=== PATIENT | female | born 1965 | race Caucasian/White ===

== ENCOUNTER → 2016-07-31 | Outpatient (CLI) | payer MEDICAID ==
--- NOTE | 2016-07-31 16:40 | XR ---
EXAM TYPE: LUMBAR SPINE X RAY SERIES COMPARISON: NONE HISTORY: Pain TECHNIQUE: 3views are submitted. FINDINGS: Alignment is anatomic. The pedicles are intact. The transverse processes are intact. There is no s pondylolysis or spondylolisthesis. Diffuse osteopenia noted. Degenerative disc disease L4-5 and L5-S 1 with facet arthropathy. IMPRESSION: 1. Multilevel degenerative disc disease. Consider follow-up MRI.
--- NOTE | 2016-07-31 16:41 | XR ---
EXAMINATION TYPE: XR tibia fibula LT DATE OF EXAM: 07/31/2016 4:32 PM COMPARISON: NONE HISTORY: Pain TECHNIQUE: Two views are submitted. FINDINGS: The osseous structures are intact. The joint spaces are preserved. IMPRESSION: 1. No acute osseous abnormality.
--- NOTE | 2016-07-31 16:42 | XR ---
EXAMINATION TYPE: XR thoracic spine 2V DATE OF EXAM: 07/31/2016 4:31 PM COMPARISON: NONE HISTORY: Pain Alignment is anatomic. There is no compression deformities. Hypertrophic change and mild narrowing o f the disc spaces. No compression deformities. IMPRESSION: 1. Multilevel hypertrophic and degenerative disc disease.
== END ==
LOC: RADXRMAIN 16:04
PROVIDERS: ATTEND Family Medicine
DX: M51.36 Other intervertebral disc degeneration, lumbar region (principal); M79.662 Pain in left lower leg
CPT/HCPCS: 72070; 72100

== ENCOUNTER → 2016-08-30 | Outpatient (CLI) | payer MEDICAID ==
--- NOTE | 2016-08-30 08:15 | MR ---
EXAMINATION TYPE: MR lumbar spine wo/w con DATE OF EXAM: 08/30/2016 7:02 AM COMPARISON: 07/23/2015 HISTORY: Low back pain CONTRAST: 15 mL intravenous MultiHance. TECHNIQUE: Multiplanar, multisequence images of the lumbar spine were acquired. FINDINGS: L5-S1: Minimal disc bulge is evident on the sagittal plane images. This has anterior thecal sac conta ct without stenosis. Facet hypertrophy is present with mild posterior lateral thecal sac contact. Mil d right and [id number] left foraminal narrowing is present. Disc desiccation is present. L4-L5: No significant disc bulge or disc herniation. No spinal canal stenosis. No foraminal stenosi s. Mild facet hypertrophy and ligamentum flavum laxity has posterior lateral thecal sac flattening. Disc desiccation is present. L3-L4: No significant disc bulge or disc herniation. A subtle annular tear may be present on T2-weigh marcus images. No spinal canal stenosis. No foraminal stenosis. L2-L3: No significant disc bulge or disc herniation. No spinal canal stenosis. No foraminal stenosi s. L1-L2: No significant disc bulge or disc herniation. No spinal canal stenosis. No foraminal stenosi s. T12-L1: No significant disc bulge or disc herniation. No spinal canal stenosis. No foraminal stenos is. Previous L5-S1 left paracentral and left lateral disc herniation is largely resolved. No abnormal enh ancement is evident. Some granulation tissue enhancement in left lateral and epidural thecal sac spac e is present on post contrast imaging IMPRESSION: 1. Resolution previous left L5-S1 disc herniation. 2. Mild degenerative disc desiccation L4-5 L5-S1. 3. Mild residual disc bulging L5-S1 without obvious nerve root impingement or significant thecal sac compression.
== END ==
LOC: RADMRIMAIN 06:17
PROVIDERS: ATTEND Orthopaedic Surgery Orthopaedic Surgery of the Spine
DX: M51.17 Intervertebral disc disorders with radiculopathy, lumbosacral region (principal)
CPT/HCPCS: 72158; A9577

== ENCOUNTER → 2016-09-01 | Outpatient (CLI) | payer MEDICAID ==
--- NOTE | 2016-09-05 10:55 | MM ---
Reason for exam: screening (asymptomatic). Last mammogram was performed 1 year ago. History: Family history of breast cancer in 2 maternal cousins and breast cancer in paternal grandmother. Physical Findings: A clinical breast exam by your physician is recommended on an annual basis and results should be correlated with mammographic findings. MG 3D Screening Mammo W/Cad Bilateral CC and MLO view(s) were taken. Prior study comparison: August 30, 2015, bilateral MG 3d screening mammo w/cad. August 17, 2014, bilateral MG screening mammo w CAD. August 13, 2013, mammogram, performed at [facility]. There are scattered fibroglandular densities. Finding: There are typically benign round, grouped and scattered calcifications in both breasts. There is no discrete abnormality. ASSESSMENT: Benign, BI-RAD 2 RECOMMENDATION: Routine screening mammogram of both breasts in 1 year.
== END | disposition home or self-care (01) ==
LOC: RADMAMWWP 08:02
PROVIDERS: ATTEND Obstetrics & Gynecology
DX: Z12.31 Encounter for screening mammogram for malignant neoplasm of breast (principal); Z80.3 Family history of malignant neoplasm of breast
CPT/HCPCS: 77063; G0202

== ENCOUNTER → 2016-09-06 | Outpatient (CLI) | payer MEDICAID ==
--- NOTE | 2016-09-06 12:40 | MR ---
EXAMINATION TYPE: MR thoracic spine wo con DATE OF EXAM: 09/06/2016 10:30 AM COMPARISON: NONE HISTORY: pain, diformity of chest rib, rt side pain Standard multiplanar, multisequence MRI departmental protocol Multiplanar, multisequence images of the thoracic spine were acquired. Diffusion weighted imaging was performed. FINDINGS: Alignment is anatomic. There are no compression deformities. Disc space appears fairly well preserved. Disc desiccation at T8-T9 noted. No focal disc herniation and in the visualized levels. There is a cystic lesion along the right lateral margin of the vertebral body measuring 1 cm at the a pproximate level of T5. Could relate to mesenteric or neurenteric cyst. CT chest recommended No canal stenosis or foraminal encroachment at any of the visualized levels. IMPRESSION: No disc herniation, canal stenosis or foraminal encroachment at any of the visualized levels. 1 cm predominantly cystic lesion adjacent the right lateral margin of T5 could relate a neurenteric c yst but is nonspecific. CT of the chest with contrast recommended for complete characterization.
== END | disposition home or self-care (01) ==
LOC: RADMRIMAIN 09:52
PROVIDERS: ATTEND Family Medicine
DX: M89.9 Disorder of bone, unspecified (principal); R07.81 Pleurodynia; M95.4 Acquired deformity of chest and rib
CPT/HCPCS: 72146

== ENCOUNTER → 2016-09-21 | Outpatient (CLI) | payer MEDICAID ==
--- NOTE | 2016-09-21 09:01 | CT ---
EXAMINATION TYPE: CT chest w con DATE OF EXAM: 09/21/2016 8:55 AM COMPARISON: NONE HISTORY: Cyst at T5 level CT DLP: 551 mGycm Automated exposure control for dose reduction was used. CONTRAST: CT scan of the chest is performed with IV Contrast, patient injected with 100 mL of Omnipaque 300. FINDINGS: LUNGS: The lungs are grossly clear, there is no concerning parenchymal mass or nodule identified. T here is no pleural effusion or pneumothorax seen. The tracheobronchial tree is patent. MEDIASTINUM: There are no greater than 1 cm hilar or mediastinal lymph nodes. No pericardial effusi on is seen. Thoracic aorta is of normal caliber. The heart is not enlarged. UPPER ABDOMEN: No significant abnormality appreciated. 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 No evidence for solid component or bony turner tructive process. No additional lesions identified. IMPRESSION: 1. 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
== END | disposition home or self-care (01) ==
LOC: RADCTMAIN 08:23
PROVIDERS: ATTEND Family Medicine
DX: G96.19 Other disorders of meninges, not elsewhere classified (principal)
CPT/HCPCS: 71260; Q9967

== ENCOUNTER → 2016-09-29 | Outpatient (CLI) | payer MEDICAID ==
--- NOTE | 2016-09-29 09:33 | US ---
EXAMINATION TYPE: US transvaginal DATE OF EXAM: 09/29/2016 8:45 AM COMPARISON: US CLINICAL HISTORY: R10.2 Pelvic Pain N93.8 Dysfunctional Uterine Bleed. History of ovarian cysts, irre gular cycles, 4, para 4 TECHNIQUE: Transvaginal (TV) only per ordering physician Date of LMP: 08/31/2016 EXAM MEASUREMENTS: Uterus: 8.3 x 5.3 x 7.0 cm Endometrial Stripe: 1.5 cm Right Ovary: not seen Left Ovary: 4.1 x 2.8 x 3.5 cm 1. Uterus: retroverted, slightly heterogeneous echotexture 2. Endometrium: slightly thickened at 1.5cm for secretory phase 3. Right Ovary: not seen due to overlying bowel gas 4. Left Ovary: multiple cystic areas with largest measuring 2.3 x 2.1 x 2.4cm 5. Bilateral Adnexa: wnl 6. Posterior cul-de-sac: small amount of free fluid seen IMPRESSION: 1. Left ovarian cysts, follow-up following the next normal menstrual period or 6 weeks is recommended . 2. Thickened endometrial stripe
== END | disposition home or self-care (01) ==
LOC: RADUSWWP 08:23
PROVIDERS: ATTEND Obstetrics & Gynecology
DX: N83.202 Unspecified ovarian cyst, left side (principal); R10.2 Pelvic and perineal pain
CPT/HCPCS: 76830

== ENCOUNTER → 2017-09-05 | Outpatient (CLI) | payer MEDICAID ==
--- NOTE | 2017-09-07 11:05 | MM ---
Reason for exam: screening (asymptomatic). Last mammogram was performed 1 year ago. History: Family history of breast cancer in 2 maternal cousins and breast cancer in paternal grandmother. Physical Findings: A clinical breast exam by your physician is recommended on an annual basis and results should be correlated with mammographic findings. MG 3D Screening Mammo W/Cad Bilateral CC and MLO view(s) were taken. Prior study comparison: September 01, 2016, bilateral MG 3d screening mammo w/cad. August 30, 2015, bilateral MG 3d screening mammo w/cad. There are scattered fibroglandular densities. No significant changes when compared with prior studies. ASSESSMENT: Benign, BI-RAD 2 RECOMMENDATION: Routine screening mammogram of both breasts in 1 year.
== END | disposition home or self-care (01) ==
LOC: RADMAMWWP 08:04
PROVIDERS: ATTEND Obstetrics & Gynecology
DX: Z12.31 Encounter for screening mammogram for malignant neoplasm of breast (principal); Z80.3 Family history of malignant neoplasm of breast
CPT/HCPCS: 77063; 77067

== ENCOUNTER 2018-09-04 07:32 | Day surgery (SDC) | payer MEDICAID ==
[2018-08-29 13:46] VITALS: BMI 25.7
[~2018-09-04 07:32] MED LIST: LACTATED RINGERS 1,000 ML IV SCH; LIDOCAINE 1% 20 ML VIAL (10MG/ML) FOR IV START INTRADERMA PRN
[2018-09-04 08:05] VITALS: RESP 16; TEMP 98.5
[2018-09-04] MEDS ORDERED: PROPOFOL 10 MG/ML 20 ML VIAL IV ONE (09:06)
--- NOTE | 2018-09-04 09:11 | P.GSHP ---
History of Present Illness H&P Date: 09/04/18 Chief Complaint: Colon cancer screening Patient here today for colonoscopy. Last colonoscopy approximately 10 years ago. No bowel related complaints. No family history of colon cancer. Past Medical History Past Medical History: Thyroid Disorder Additional Past Medical History / Comment(s): migraines, anemia, History of Any Multi-Drug Resistant Organisms: None Reported Past Surgical History: Adenoidectomy, Back Surgery Additional Past Surgical History / Comment(s): oral surgery, colonoscopy, laminectomy Past Anesthesia/Blood Transfusion Reactions: No Reported Reaction Additional Past Anesthesia/Blood Transfusion Reaction / Comment(s): . Smoking Status: Former smoker - Past Family History Mother Family Medical History: No Reported History Medications and Allergies Home Medications Medication Instructions Recorded Confirmed Type Levothyroxine Sodium [Synthroid] 100 mcg PO DAILY 07/23/15 09/04/18 History Topiramate [Topamax] 100 mg PO BID 08/29/18 09/04/18 History Allergies Allergy/AdvReac Type Severity Reaction Status Date / Time codeine Allergy Rash/Hives Verified 08/29/18 13:39 Surgical - Exam Vital Signs Temp Pulse Resp BP Pulse Ox 98.5 F 92 16 108/65 96 09/04/18 08:04 09/04/18 08:04 09/04/18 08:04 09/04/18 08:04 09/04/18 08:04 Physical exam: General: Well-developed, well-nourished HEENT: Normocephalic, sclerae nonicteric Abdomen: Nontender, nondistended Extremities: No edema Neuro: Alert and oriented Assessment and Plan (1) Colon cancer screening Narrative/Plan: Will proceed with colonoscopy Current Visit: Yes Status: Acute Code(s): Z12.11 - ENCOUNTER FOR SCREENING FOR MALIGNANT NEOPLASM OF COLON SNOMED Code(s): 236681776
--- NOTE | 2018-09-04 09:35 | P.PCN ---
Date of Procedure: 09/04/18 Procedure(s) Performed: PREOPERATIVE DIAGNOSIS: Colon cancer screening POSTOPERATIVE DIAGNOSIS: Normal exam PROCEDURE: Colonoscopy ANESTHESIA: MAC SURGEON: Adiel Neves M.D. SPECIMENS: none ENDOSCOPIC PROCEDURE: The patient was placed on the endoscopy table in the left decubitus position. The Olympus colonoscope was inserted into the anus and passed under direct visualization to the base of the cecum. The appendiceal orifice was visualized. From that point the scope was slowly withdrawn inspecti ng all surfaces carefully. There were no neoplastic inflammatory or polypoid lesions throughout the cecum, ascending, transverse, descending, sigmoid and rectum. There was no visible diverticulosis noted. Digital rectal examination reveals small external hemorrhoid. The patient was taken to the recovery room in stable condition per anesthesia guidelines. RECOMMENDATIONS: Increase fiber. Follow-up colonoscopy 10 years.
[2018-09-04 09:52] VITALS: BP 98/64; PULSE 66
== END 2018-09-04 10:07 | disposition home or self-care (01) ==
LOC: ORWHC2ENDO 07:32
PROVIDERS: ATTEND Surgery
DX: Z12.11 Encounter for screening for malignant neoplasm of colon (principal); Z87.891 Personal history of nicotine dependence; E07.9 Disorder of thyroid, unspecified; K64.4 Residual hemorrhoidal skin tags; Z79.890 Hormone replacement therapy; Z79.899 Other long term (current) drug therapy; Z88.5 Allergy status to narcotic agent
CPT/HCPCS: 81025; 84703; J2704; G0121

== ENCOUNTER → 2018-09-06 | Outpatient (CLI) | payer MEDICAID ==
--- NOTE | 2018-09-09 10:45 | MM ---
Reason for exam: screening (asymptomatic). Last mammogram was performed 1 year ago. History: Family history of breast cancer in 2 maternal cousins and breast cancer in paternal grandmother. Physical Findings: A clinical breast exam by your physician is recommended on an annual basis and results should be correlated with mammographic findings. MG 3D Screening Mammo W/Cad Bilateral CC and MLO view(s) were taken. Prior study comparison: September 05, 2017, bilateral MG 3d screening mammo w/cad. September 01, 2016, bilateral MG 3d screening mammo w/cad. There are scattered fibroglandular densities. No suspicious abnormality. No significant changes when compared with prior studies. ASSESSMENT: Incomplete: need additional imaging evaluation, BI-RAD 0 RECOMMENDATION: Ultrasound of the right breast. (palpable) [facility] will attempt to contact patient to return for ultrasound.
== END | disposition home or self-care (01) ==
LOC: RADMAMWWP 09:19
PROVIDERS: ATTEND Obstetrics & Gynecology
DX: Z12.31 Encounter for screening mammogram for malignant neoplasm of breast (principal)
CPT/HCPCS: 77063; 77067

== ENCOUNTER → 2018-10-01 | Outpatient (CLI) | payer MEDICAID ==
--- NOTE | 2018-10-01 12:17 | USB ---
Reason for exam: additional evaluation requested from abnormal screening. History: Family history of breast cancer in 2 maternal cousins and breast cancer in paternal grandmother. Physical Findings: Nurse Summary: bilateral nodularity greater in the right breast (nurse cw). US Breast Workup Limited RT Right limited breast ultrasound including focal area of concern, retroareolar and axilla demonstrates a 0.5 x 1.1 x 0.3cm oval nodes at 3:30-4:00 BB and a 0.5 x 0.9 x 0.3cm ovall node at 3:30-4:00. Possibly subtle intramammary lymph nodes versus prominent lobes. These results were verbally communicated with the patient and result sheet given to the patient on 10/01/18. ASSESSMENT: Probably benign, BI-RAD 3 RECOMMENDATION: Ultrasound of the right breast in 6 months.
== END | disposition home or self-care (01) ==
LOC: RADUSWWP 09:05
PROVIDERS: ATTEND Obstetrics & Gynecology
DX: R92.8 Other abnormal and inconclusive findings on diagnostic imaging of breast (principal)

== ENCOUNTER → 2019-03-24 | Outpatient (CLI) | payer MEDICAID ==
--- NOTE | 2019-03-24 16:57 | US ---
EXAMINATION TYPE: US transvaginal DATE OF EXAM: 03/24/2019 COMPARISON: 09/29/2016 CLINICAL HISTORY: N95.0 post menopausal bleeding. TECHNIQUE: Transvaginal (TV). Date of LMP: Patient went 16 months without a period and has been spotting for 6 days. EXAM MEASUREMENTS: Uterus: 6.6 x 3.8 x 4.5 cm Endometrial Stripe: 0.4 cm Right Ovary: not visualized with certainty Left Ovary: not visualized with certainty 1. Uterus: Retroverted wnl 2. Endometrium: wnl 3. Right Ovary: not visualized with certainty 4. Left Ovary: not visualized with certainty 5. Bilateral Adnexa: wnl 6. Posterior cul-de-sac: wnl Midline there is a cystic structure measuring 2.4 x 1.7 x 1.6cm. IMPRESSION: No normal uterus and endometrium. No Adnexal mass. Cystic fluid collection in the pelvis could be some loculated fluid in the cul-de-sac.
== END ==
LOC: RADUSMAIN 15:51
PROVIDERS: ATTEND Obstetrics & Gynecology
DX: N95.0 Postmenopausal bleeding (principal)
CPT/HCPCS: 76830

== ENCOUNTER → 2019-04-09 | Outpatient (CLI) | payer MEDICAID ==
--- NOTE | 2019-04-09 09:03 | BD ---
EXAMINATION TYPE: Axial Bone Density DATE OF EXAM: 04/09/2019 COMPARISON: NONE CLINICAL HISTORY: post menopausal Height: 5'5 Weight: 163 FRAX RISK QUESTIONS: Secondary Osteoporosis: RISK FACTORS HISTORY OF: Surgery to Spine/): L5 When: 2014 Postmenopausal woman: Y MEDICATIONS: Thyroid Medications: Which medication: Levothyroxine How Lon years Additional Medications: migraine Additional History: EXAM MEASUREMENTS: Bone mineral densitometry was performed using the [employer] System. Bone mineral density about the R hip (g/cm2): 0.956 Bone mineral density about the L hip (g/cm2): 0.900 T Score values are as follows: -----R Neck: -0.6 -----L Neck: -1.0 -----R Total: -0.6 -----L Total: -0.8 Bone mineral density about the L Wrist (g/cm2):0.620 T Score values are as follows: -----Dist. R+U:-2.5 -----Prox. R+U: -0.7 -----Radius total:-0.9 IMPRESSION: Normal (Values between +1 and -1 indicate normal bone mass). Consider repeating this study in 5 years or sooner if there is some new clinical indication. NOTE: T-SCORE=SD OF THE YOUNG ADULT MEAN.
--- NOTE | 2019-04-09 10:47 | USB ---
Reason for exam: follow-up at short interval from prior study. History: Family history of breast cancer in 2 maternal cousins and breast cancer in paternal grandmother. Physical Findings: Nurse Summary: palpable vs normal tissue, patient feels, states "has not changed" (nurse refugio). US Breast Limited RT Technologist: Shanta Funes Right limited breast ultrasound including focal area of concern, retroareolar and axilla demonstrates no cystic or solid lesion seen. These results were verbally communicated with the patient and result sheet given to the patient on 04/09/19. ASSESSMENT: Negative, BI-RAD 1 RECOMMENDATION: Return to routine screening mammogram schedule for both breasts. Back on schedule.
== END | disposition home or self-care (01) ==
LOC: RADUSWWP 08:14
PROVIDERS: ATTEND Obstetrics & Gynecology
DX: R92.8 Other abnormal and inconclusive findings on diagnostic imaging of breast (principal); N95.1 Menopausal and female climacteric states
CPT/HCPCS: 77080

== ENCOUNTER → 2019-05-05 | Outpatient (CLI) | payer MEDICAID ==
--- NOTE | 2019-05-05 12:37 | US ---
EXAMINATION TYPE: US transvaginal DATE OF EXAM: 05/05/2019 COMPARISON: 03/24/2019 CLINICAL HISTORY: 53-year-old female R18.8 PELVIC FLUID. Post menopausal bleeding follow up US; TECHNIQUE: Transvaginal sonographic images were obtained per physician's order Date of LMP: 16 months ago FINDINGS: EXAM MEASUREMENTS: Uterus: 5.9 x 4.6 x 3.5 cm Endometrial Stripe: 0.7 cm Right Ovary: 2.8 x 1.5 x 0.8 cm Left Ovary: 4.3 x 3.2 x 2.0 cm 1. Uterus: Retroverted 2. Endometrium: Mildly thickened for a postmenopausal female. Previously measured at 4 mm. 3. Right Ovary: A simple cyst within measures 0.8 x 0.9 x 0.6cm 4. Left Ovary: Large cyst within measures 2.9 x 2.6 x 1.8cm . Some internal low-level echoes could r epresent debris or artifact. 5. Bilateral Adnexa: wnl 6. Posterior cul-de-sac: wnl Color flow is noted in bilateral ovary. IMPRESSION: 1. Retroverted uterus with mildly thickened endometrial stripe (7 mm) for a female with postmenopausa l bleeding. Endometrial hyperplasia, polyps, and carcinoma are in the differential at this time. Cont inued follow-up recommended. 2. A 2.9 cm cyst of the left ovary. Some internal echoes could represent artifact or debris. Follow-u p in 6-8 weeks to reassess.
== END | disposition home or self-care (01) ==
LOC: RADUSWWP 09:10
PROVIDERS: ATTEND Obstetrics & Gynecology
DX: N83.202 Unspecified ovarian cyst, left side (principal); N95.0 Postmenopausal bleeding; N85.4 Malposition of uterus
CPT/HCPCS: 76830

== ENCOUNTER → 2019-05-22 | Outpatient (CLI) | payer MEDICAID ==
--- NOTE | 2019-05-22 08:30 | US ---
EXAMINATION TYPE: US gallbladder DATE OF EXAM: 05/22/2019 COMPARISON: NONE CLINICAL HISTORY: R10.11 right upper quad pain. Intermittent bloating, indigestion, and loose stool x 4 to 5 months, gets worse after eating. EXAM MEASUREMENTS: Liver Length: 14.1 cm Gallbladder Wall: 0.2 cm CBD: 0.2 cm Right Kidney: 10.0 x 4.9 x 4.7 cm Pancreas: visualized portions wnl, limited by overlying midline bowel gas Liver: wnl Gallbladder: wnl Evidence for sonographic Doyle's sign: no CBD: wnl Right Kidney: wnl IMPRESSION: No sonographic evidence of cholelithiasis nor acute cholecystitis.
== END | disposition home or self-care (01) ==
LOC: RADUSWWP 07:35
PROVIDERS: ATTEND Family Medicine
DX: R10.11 Right upper quadrant pain (principal); Z88.5 Allergy status to narcotic agent
CPT/HCPCS: 76705

== ENCOUNTER → 2019-11-04 | Outpatient (CLI) | payer MEDICAID ==
--- NOTE | 2019-11-04 12:00 | US ---
EXAMINATION TYPE: US transvaginal DATE OF EXAM: 11/04/2019 COMPARISON: US May 05, 2019 CLINICAL HISTORY: N83.0 OVARIAN CYST. TECHNIQUE: Transvaginal (TV). Date of LMP: Patient went year without menses, in March she had menses for 10 days and hasn't had anything since EXAM MEASUREMENTS: Uterus: 5.8 x 3.6 x 4.6 cm Endometrial Stripe: 0.3 cm Right Ovary: Obscured by overlying bowel gas Left Ovary: 2.2 x 2.0 x 2.0 cm 1. Uterus: Retroverted wnl 2. Endometrium: wnl 3. Right Ovary: Obscured by overlying bowel gas 4. Left Ovary: mostly encompassed by simple appearing cyst measuring 1.9 x 1.7 x 1.6cm 5. Bilateral Adnexa: wnl 6. Posterior cul-de-sac: wnl Persistent heterogeneous retroverted uterus. Endometrium not suspiciously thickened. No free fluid. Right ovary not seen with certainty. Left ovary shows 1.9 cm thin-walled cyst decreased in size from prior IMPRESSION: As above. No suspicious abnormality identified.
--- NOTE | 2019-11-05 08:33 | MM ---
Reason for exam: screening (asymptomatic). Last mammogram was performed 1 year and 2 months ago. History: Patient is postmenopausal. Family history of breast cancer in 2 maternal cousins and breast cancer in paternal grandmother. Physical Findings: A clinical breast exam by your physician is recommended on an annual basis and results should be correlated with mammographic findings. MG 3D Screening Mammo W/Cad Bilateral CC and MLO view(s) were taken. Prior study comparison: September 06, 2018, bilateral MG 3d screening mammo w/cad. September 05, 2017, bilateral MG 3d screening mammo w/cad. There are scattered fibroglandular densities. There is no discrete abnormality including area of concern. No significant changes when compared with prior studies. ASSESSMENT: Negative, BI-RAD 1 RECOMMENDATION: Routine screening mammogram of both breasts in 1 year.
== END | disposition home or self-care (01) ==
LOC: RADUSWWP 10:24
PROVIDERS: ATTEND Obstetrics & Gynecology
DX: Z12.31 Encounter for screening mammogram for malignant neoplasm of breast (principal); N83.202 Unspecified ovarian cyst, left side
CPT/HCPCS: 76830; 77063; 77067

== ENCOUNTER → 2020-11-18 | Outpatient (CLI) | payer MEDICAID ==
--- NOTE | 2020-11-22 15:05 | MM ---
Reason for exam: screening (asymptomatic). Last mammogram was performed 1 year ago. History: Patient is postmenopausal. Family history of breast cancer in 2 maternal cousins and breast cancer in paternal grandmother. Physical Findings: A clinical breast exam by your physician is recommended on an annual basis and results should be correlated with mammographic findings. MG 3D Screening Mammo W/Cad Bilateral CC and MLO view(s) were taken. Prior study comparison: November 04, 2019, bilateral MG 3d screening mammo w/cad. September 06, 2018, bilateral MG 3d screening mammo w/cad. There are scattered fibroglandular densities. No significant changes when compared with prior studies. ASSESSMENT: Negative, BI-RAD 1 RECOMMENDATION: Routine screening mammogram of both breasts in 1 year.
== END | disposition home or self-care (01) ==
LOC: RADMAMWWP 08:04
PROVIDERS: ATTEND Obstetrics & Gynecology
DX: Z12.31 Encounter for screening mammogram for malignant neoplasm of breast (principal); Z78.0 Asymptomatic menopausal state; Z80.3 Family history of malignant neoplasm of breast
CPT/HCPCS: 77063; 77067

== ENCOUNTER → 2021-11-21 | Outpatient (CLI) | payer MEDICAID ==
--- NOTE | 2021-11-24 10:27 | MM ---
Reason for Exam: Screening (asymptomatic). Last screening mammogram was performed 12 month(s) ago. Patient History: Menarche at age 14. First Full-Term at age 26. Postmenopausal. Patient has history of breast feeding. Paternal grandmother had breast cancer, age 60. Risk Values: Linnea 5 year model risk: 1.0%. NCI Lifetime model risk: 7.5%. Prior Study Comparison: 09/06/2018 Bilateral Screening Mammogram, [facility]. 11/04/2019 Bilateral Screening Mammogram, [facility]. 11/18/2020 Bilateral Screening Mammogram, [facility]. Tissue Density: The breast tissue is almost entirely fat. Findings: Analyzed By CAD. There is no suspicious group of microcalcifications or new suspicious mass in either breast. Overall Assessment: Negative, BI-RAD 1 Management: Screening Mammogram of both breasts in 1 year. A clinical breast exam by your physician is recommended on an annual basis and results should be correlated with mammographic findings. Electronically signed and approved by: Steve Manzano DO
== END | disposition home or self-care (01) ==
LOC: RADMAMWWP 17:05
PROVIDERS: ATTEND Obstetrics & Gynecology
DX: Z12.31 Encounter for screening mammogram for malignant neoplasm of breast (principal); Z78.0 Asymptomatic menopausal state; Z80.3 Family history of malignant neoplasm of breast
CPT/HCPCS: 77063; 77067

== ENCOUNTER → 2022-11-10 | Outpatient (CLI) | payer MEDICAID ==
--- NOTE | 2022-11-10 22:52 | MR ---
EXAMINATION TYPE: MR brain wo con DATE OF EXAM: 11/10/2022 10:43 PM COMPARISON: NONE HISTORY: Migraines and facial numbness FINDINGS: The ventricles, basal cisterns and sulci overlying the cerebral convexities are minimally enlarged. There is evidence of minimal periventricular white matter ischemic demyelination. Nonspecific 3.7 mm focus of increased signal left external capsule. Remote deep white matter insults are also noted. No acute edema is seen on diffusion weighted imaging. There is no evidence for midline shift or mass effect. Acute intracranial hemorrhage or extra-axial collection is not evident. The paranasal sinuses and mastoid air cells are well-aerated. IMPRESSION: Age-related atrophic and chronic small vessel ischemic change. No acute intracranial process at this time.
== END | disposition home or self-care (01) ==
LOC: RADMRIMAIN 21:15
PROVIDERS: ATTEND Family Medicine
DX: G43.109 Migraine with aura, not intractable, without status migrainosus (principal); I67.82 Cerebral ischemia; G31.9 Degenerative disease of nervous system, unspecified; R20.0 Anesthesia of skin
CPT/HCPCS: 70551

== ENCOUNTER → 2022-11-23 | Outpatient (CLI) | payer MEDICAID ==
--- NOTE | 2022-11-24 21:58 | MM ---
Reason for Exam: Screening (asymptomatic). Last screening mammogram was performed 12 month(s) ago. Patient History: Menarche at age 14. First Full-Term at age 26. Postmenopausal. Patient has history of breast feeding. Paternal grandmother had breast cancer, age 60. Risk Values: Linnea 5 year model risk: 1.1%. NCI Lifetime model risk: 7.4%. Prior Study Comparison: 11/04/2019 Bilateral Screening Mammogram, [facility]. 11/18/2020 Bilateral Screening Mammogram, [facility]. 11/21/2021 Bilateral MG 3D screening mammo w/cad, [facility]. Tissue Density: There are scattered fibroglandular densities. Findings: Analyzed By CAD. There is no suspicious group of microcalcifications or new suspicious mass in either breast. Overall Assessment: Negative, BI-RAD 1 Management: Screening Mammogram of both breasts in 1 year. . Patient should continue monthly self-breast exams. A clinical breast exam by your physician is recommended on an annual basis. This exam should not preclude additional follow-up of suspicious palpable abnormalities. Note on Linnea scores and lifetime risk: 1. A Linnea score greater than 3% is considered moderate risk. If this is the case, consider specialist referral to assess eligibility for a risk reducing agent. 2. If overall lifetime risk for the development of breast cancer is 20% or higher, the patient may qualify for future screening with alternating mammogram and breast MRI. Electronically signed and approved by: Yogi Clements M.D. Radiologist
== END | disposition home or self-care (01) ==
LOC: RADMAMWWP 15:49
PROVIDERS: ATTEND Obstetrics & Gynecology
DX: Z12.31 Encounter for screening mammogram for malignant neoplasm of breast (principal); Z80.3 Family history of malignant neoplasm of breast; Z78.0 Asymptomatic menopausal state
CPT/HCPCS: 77063; 77067

== ENCOUNTER → 2023-01-24 | Outpatient (CLI) | payer MEDICAID ==
--- NOTE | 2023-01-24 10:49 | USB ---
Reason for Exam: Clinical finding. Patient History: Menarche at age 14. First Full-Term at age 26. Postmenopausal. Patient has history of breast feeding. Paternal grandmother had breast cancer, age 60. Risk Values: Linnea 5 year model risk: 1.1%. NCI Lifetime model risk: 7.4%. Technique: Method: Targeted. Prior Study Comparison: 11/18/2020 Bilateral Screening Mammogram, [facility]. 11/21/2021 Bilateral MG 3D screening mammo w/cad, [facility]. 11/23/2022 Bilateral MG 3D screening mammo w/cad, [facility]. Findings: The lateral section of the breast of the right breast, the axilla of the right breast and the retroareolar of the right breast were scanned. No solid or cystic masses are identified. Clinical management of patient's pain is recommended. Overall Assessment: Negative, BI-RAD 1 Management: Screening Mammogram of both breasts in 10 months. A clinical breast exam by your physician is recommended on an annual basis and results should be correlated with mammographic findings. This exam should not preclude additional follow-up of suspicious palpable abnormalities. Results were given to the patient verbally at the time of exam. Electronically signed and approved by: Jaquan Manzo D.O. Radiologis
== END | disposition home or self-care (01) ==
LOC: RADUSWWP 10:11
PROVIDERS: ATTEND Obstetrics & Gynecology
DX: N64.4 Mastodynia (principal); Z78.0 Asymptomatic menopausal state; Z80.3 Family history of malignant neoplasm of breast

== ENCOUNTER → 2023-03-06 | Outpatient (CLI) | payer MEDICAID ==
--- NOTE | 2023-03-06 10:02 | US ---
EXAMINATION TYPE: US gallbladder DATE OF EXAM: 03/06/2023 COMPARISON: US 05/22/2019 CLINICAL INDICATION: Female, 57 years old with history of R10.11 RUQ PAIN; RUQ pain. TECHNIQUE: Multiple sonographic images of the right upper quadrant are obtained. FINDINGS: EXAM MEASUREMENTS: Liver Length: 16.2 cm Gallbladder Wall: 0.17 cm CBD: 0.29 cm Right Kidney: 10.5 x 5.8 x 4.0 cm BATCH UNIT TREATER NOTES: Limited due to overlying bowel gas. Pancreas: Not well visualized. Liver: Appears coarse in echotexture. Gallbladder: Appears wnl Evidence for sonographic Doyle's sign: No CBD: Appears wnl Right Kidney: Dilated right renal pelvis. IMPRESSION: 1. Hepatic steatosis noted. 2. Prominence of the right renal pelvis may reflect extrarenal pelvis versus mild hydronephrosis.
== END | disposition home or self-care (01) ==
LOC: RADUSWWP 06:58
PROVIDERS: ATTEND Surgery
DX: K76.0 Fatty (change of) liver, not elsewhere classified (principal); R10.32 Left lower quadrant pain
CPT/HCPCS: 76705

== ENCOUNTER → 2023-03-13 | Outpatient (CLI) | payer MEDICAID ==
--- NOTE | 2023-03-13 15:38 | NM ---
EXAMINATION TYPE: NM hepatobiliary w EF DATE OF EXAM: 03/13/2023 COMPARISON: NONE INDICATION: Abdomen right upper quadrant TECHNIQUE: After the intravenous administration of 5 mCi Tc 99m Mebrofenin hepatobiliary scintigraphy is performed. Images were obtained immediately post injection. FINDINGS: There is prompt uptake and excretion of radiotracer by the liver. Extrahepatic ducts are identified at 16 minutes. The gallbladder is visualized within 8 minutes. At one hour 8 ounces of oral ensure plus is given to mimic CCK and gallbladder ejection fraction is c alculated at 76 %, which is in the normal range. (Normal >35% and <80%.). IMPRESSION: 1. Normal hepatobiliary scan
== END | disposition home or self-care (01) ==
LOC: RADNMMAIN 12:46
PROVIDERS: ATTEND Family Medicine
DX: R10.84 Generalized abdominal pain (principal)
CPT/HCPCS: 78226; A9537

== ENCOUNTER → 2023-12-04 | Outpatient (CLI) | payer MEDICAID ==
--- NOTE | 2023-12-05 17:06 | MR ---
EXAMINATION TYPE: MR angio head wo con DATE OF EXAM: 12/04/2023 5:23 PM CLINICAL INDICATION:Female, 58 years old with history of R20.0 FACIAL ANESTHESIA OF SKIN; PHH, Migrai ramesh, facial numbness COMPARISON: 11/10/2022 Technical: 3-D [id number] Axial with MIP reconstruction created on a separate workstation.. IV Contrast: None cc Findings: Vertebral arteries: The vertebral arteries are patent. Vertebral arteries are: Right dominant. Basilar artery: The basilar artery is intact. The basilar artery bifurcation is normal. Internal Carotid arteries: The cervical, petrous, cavernous and supraclinoid segments are normal. ELISSA: Patent with no evidence of aneurysm. ACOM: Present without evidence of aneurysm. MCA: Patent with no evidence of aneurysm. PREMIUM REPRESENTATIVE: Patent with no evidence of aneurysm. PCOM: Hypoplastic left a normal caliber right. IMPRESSION: No evidence of aneurysm or significant stenosis.
== END | disposition home or self-care (01) ==
LOC: RADMRIMAIN 16:22
PROVIDERS: ATTEND Psychiatry & Neurology Neurology
DX: G43.909 Migraine, unspecified, not intractable, without status migrainosus (principal); R20.0 Anesthesia of skin
CPT/HCPCS: 70544

== ENCOUNTER → 2024-01-08 | Outpatient (CLI) | payer MEDICAID ==
[2024-01-08 12:02] VITALS: BP 118/79; PULSE 69; RESP 16; TEMP 98.3
--- NOTE | 2024-01-08 12:50 | P.HPOB ---
History of Present Illness H&P Date: 01/08/24 Chief Complaint: The patient is here for her routine gynecologic exam and ma mmogram. This is a 58-year-old with an LMP of 2019. The patient is here to establish with this office. It has been about 1 year since her last pelvic exam. She previously saw Dr. Torey Heredia for her gynecologic care. She states she was diagnosed with lichen sclerosis of the vulva. She has been using triamcinolone cream as needed for vulvar irritation. She states this has helped significantly. She states she did not have a biopsy of the vulva when the diagnosis was made. She states she has noticed her abdomen seems bloated for about the last year, but she has noticed it more over the last couple of months. Review of Systems She believes she has gained about 20 pounds over the past year. She has been trying to lose weight. She denies respiratory or cardiac problems. GI: She has not noticed a bloated feeling in her abdomen as described in the HPI. She does have some indigestion. Past Medical History Past Medical History: Thyroid Disorder Additional Past Medical History / Comment(s): chronic lumbar pain started in may-cause L foot numbness, hypothryoid, migraines. PAST [employer] TECHNICIAN HISTORY: She has no history of STDs. Did have a LEEP procedure of the cervix in 1994 and was diagnosed with lichen sclerosis of the vulva after the menopause History of Any Multi-Drug Resistant Organisms: None Reported Past Surgical History: Adenoidectomy Additional Past Surgical History / Comment(s): EPIDURAL PAIN PROCEDURES X 3 @ [facility]. Colonoscopy 2015. [place] teeth removed. LEEP procedure of the cervix in 1994. Additional Past Anesthesia/Blood Transfusion Reaction / Comment(s): Pt has never received blood. Past Psychological History: No Psychological Hx Reported Additional Psychological History / Comment(s): Pt resides with her spouse. She is independent. She can drive but hasn't since back problem started. She uses no assistive device. Smoking Status: Former smoker Past Alcohol Use History: Occasional (2 drinks per month.) Additional Past Alcohol Use History / Comment(s): Pt states she started smoking at age 16 and quit in her 20s. Past Drug Use History: None Reported Additional History: She has been since 2014. 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 - Past Family History Mother Family Medical History: Diabetes Mellitus, Hypertension Additional Family Medical History / Comment(s): Migraine. Father Additional Family Medical History / Comment(s): Crohn's disease. Paternal grandmother had breast cancer. Sister(s) Additional Family Medical History / Comment(s): Ulcerative colitis. Cousin Family Medical History: Cancer Additional Family Medical History / Comment(s): Gastric cancer. Medications and Allergies Home Medications and Allergies Comment(s): Triamcinolone 0.1% cream as needed for vulvar irritation. Nurtec 75 mg p.o. daily. Home Medications Medication Instructions Recorded Confirmed Type Levothyroxine Sodium [Synthroid] 100 mcg PO DAILY 07/23/15 09/04/18 History Topiramate [Topamax] 100 mg PO BID 08/29/18 09/04/18 History Allergies Allergy/AdvReac Type Severity Reaction Status Date / Time codeine Allergy Rash/Hives Verified 01/08/24 11:58 Exam Vital Signs Temp Pulse Resp BP Pulse Ox 01/08/24 11:59 98.3 F 69 16 118/79 100 Intake and Output 01/07/24 01/08/24 01/08/24 22:59 06:59 14:59 Other: Weight 81.647 kg Height 5 feet 5 inches, weight 180 pounds, BMI 30.0. This is a well-developed well-nourished white female who is alert and oriented times 3 in no acute distress. HEENT: Within normal limits. NECK: Supple without mass or thyromegaly. CHEST AND LUNGS: Clear to auscultation. HEART: Regular rate and rhythm. BREASTS: Are without mass or discharge. AXILLARY EXAM: Negative for adenopathy. BACK: Negative for CVA tenderness. ABDOMEN: Soft, nontender, without palpable masses. PELVIC EXAM: External genitalia reveals mild atrophy with minimal labia majora pallor. Cervix and vagina appear normal with mild atrophy. There is no unusual discharge. There is a grade 2 rectocele and a grade 1-2 cystocele noted. The uterus is midposition, nongravid size and nontender. There are no palpable adnexal masses or tenderness. RECTAL EXAM: Rectovaginal exam is negative for mass or tenderness and is negative for occult blood. EXTREMITIES: Nontender. IMPRESSION: 1. 58-year-old menopausal female with history of lichen sclerosus of the vulva controlled with triamcinolone cream. There are mild vulvar changes consistent with lichen sclerosis and her gynecologic exam is otherwise unremarkable. 2. Several month history of abdominal bloating. 3. History of LEEP procedure of the cervix in 1994. PLAN: 1. Pap smear cotest was performed. 2. Self breast awareness was discussed with the patient. We have also discussed symptoms associated with inflammatory breast cancer. 3. Screening mammogram will be done today. 4. Kenalog 0.1% cream twice daily as needed for vulvar irritation. The electronic prescription will be sent to [facility] pharmacy on . If she is having worsening symptoms we will reevaluate and consider vulvar biopsy if there are focal lesions. 5. Pelvic ultrasound was recommended because of the abdominal bloating which she is describing. Will be used to check for ovarian abnormalities. She understands that there can be other causes for bloating including GI causes that will not be diagnosed with a pelvic ultrasound. The patient was given the order for the pelvic ultrasound. 6. Osteoporosis prevention was discussed. I have stressed the importance of adequate calcium, vitamin D and regular exercise. Recommended amounts of calcium and vitamin D were also discussed. She had a normal bone density test done on 09/07/2018. She was scheduled for a bone density test today, but it was canceled. She was given an order slip for a bone density test. She will do this when this testing becomes available. 7. She was advised to return in one year for her annual well woman exam and as needed.
== END ==
LOC: WWCWWP 11:25
PROVIDERS: ATTEND Obstetrics & Gynecology
DX: Z12.31 Encounter for screening mammogram for malignant neoplasm of breast (principal); N90.4 Leukoplakia of vulva; Z78.0 Asymptomatic menopausal state; Z98.890 Other specified postprocedural states; Z87.19 Personal history of other diseases of the digestive system; Z87.891 Personal history of nicotine dependence; Z90.89 Acquired absence of other organs; Z80.3 Family history of malignant neoplasm of breast; Z88.5 Allergy status to narcotic agent

== ENCOUNTER → 2024-01-09 | Outpatient (CLI) | payer MEDICAID ==
--- NOTE | 2024-01-09 18:56 | US ---
EXAMINATION TYPE: US pelvis complete transvag DATE OF EXAM: 01/09/2024 COMPARISON: NONE CLINICAL INDICATION: Female, 58 years old with history of R14.0 Abdominal bloating; bloating TECHNIQUE: Transvaginal (TV) and Transabdominal (TA) . Transabdominal sonographic images of the pel vis were acquired. Transvaginal sonographic images were medically necessary to better assess the fol lowing anatomy: per order Date of LMP: 2018 EXAM MEASUREMENTS: Uterus: 5.2 x 3.0 x 4.5 cm Endometrial Stripe: 0.3 cm Right Ovary: unable to visualize Left Ovary: unable to visualize 1. Uterus: Anteverted wnl 2. Endometrium: wnl 3. Right Ovary: Obscured by overlying bowel gas 4. Left Ovary: Obscured by overlying bowel gas 5. Bilateral Adnexa: wnl 6. Posterior cul-de-sac: wnl IMPRESSION: 1. No suspicious acute pelvic ultrasound abnormality. 2. Nonvisualization of the ovaries
--- NOTE | 2024-01-11 18:28 | BD ---
EXAMINATION TYPE: Axial Bone Density DATE OF EXAM: 01/09/2024 CLINICAL HISTORY: 58 years old Female. ICD-10 CODE: Z78.0 Postmenopausal Height: 64.5 Weight: 177.9 FRAX RISK QUESTIONS: Alcohol (3 or more units per day): no Family History (Parent hip fracture): no Glucocorticoids (More than 3mos): no (Ex: prednisone, prednisolone, methylprednisolone, dexamethasone, and hydrocortisone). History of Fracture in Adulthood: no Secondary Osteoporosis: 1. Type 1 Diabetes: no 2. Hyperthyroidism: no 3. Menopause before 45: no 4. Malnutrition: no 5. Chronic liver disease: no Rheumatoid Arthritis: no Current Tobacco Use: no RISK FACTORS HISTORY OF: Hip Fracture (Right/Left): no Spine Fracture: no History of Wrist Fracture: no Surgery to Spine/Hip(right/left)/Wrist (right/left): no MEDICATIONS: Thyroid Medications: levothyroxine How Long: past 20 years Osteoporosis Medications: no EXAM MEASUREMENTS: Bone mineral densitometry was performed using the Kerecis System. Bone mineral density about the R hip (g/cm2): 0.950 Bone mineral density about the L hip (g/cm2): 0.877 T Score values are as follows: -----R Neck: -0.9 -----L Neck: -1.4 -----R Total: -0.5 -----L Total: -1.0 Z Score values are as follows: -----R Neck: -0.1 -----L Neck: -0.6 -----R Total: -0.5 -----L Total: -1.0 Bone mineral density has: decreased -0.7 % since study of: 04/09/2019 Bone mineral density about the L Wrist (g/cm2): 0.611 T Score values are as follows: -----Dist. R+U: -1.8 -----Prox. R+U: -1.5 -----Radius total: -1.1 Z Score values are as follows: -----Dist. R+U: -1.2 -----Prox. R+U: -0.9 -----Radius total: -0.5 Bone mineral density has: decreased -8.8 % since study of: 04/09/2019 FRAX%s: The graph provided illustrates a 6.6% chance for a major osteoporotic fx and a 0.5% chance fo r the hips probability for fx in 10 years time. IMPRESSION: Osteopenia (T Score between -2.5 and -1). There is slightly increased risk of fracture and the patient may be considered for treatment. Re-Screen 2-5 years. NOTE: T-SCORE=SD OF THE YOUNG ADULT MEAN.
== END | disposition home or self-care (01) ==
LOC: RADUSWWP 15:58
PROVIDERS: ATTEND Obstetrics & Gynecology
DX: R14.0 Abdominal distension (gaseous)
CPT/HCPCS: 76830; 76856; 77080

== ENCOUNTER → 2024-08-05 | Outpatient (CLI) | payer MEDICAID ==
--- NOTE | 2024-08-05 21:45 | MR ---
EXAMINATION TYPE: MR elbow RT wo con DATE OF EXAM: 08/05/2024 8:48 PM COMPARISON: None. CLINICAL INDICATION: Female, 59 years old with history of M77.11; PHH, Right elbow pain for 2 years, no known injury. TECHNIQUE: Multiplanar multi-sequence imaging was performed of the elbow joint. No gadolinium given. FINDINGS: Ligaments and tendons: The common extensor tendon has intermediate T2 signal intensity wit h in it near its origin. No significant edema is around epicondyle however. The tendon remains intac t. The lateral ulnar collateral ligament, annular ligament, and lateral collateral ligament are inta ct. The common flexor tendon, biceps tendon, brachialis tendon, and triceps tendon are within normal limits. Osseous structures: Tiny focus of high PD signal in the radial head articular surface suggesting dege neration changes. The remaining bone marrow signal intensity is unremarkable. A small amount of join t fluid is noted. IMPRESSION: Tendinosis of the common extensor tendon origin. Chronic partial tear not excluded. [facility], , 08/05/2024 9:43 PM
== END | disposition home or self-care (01) ==
LOC: RADMRIMAIN 20:45
PROVIDERS: ATTEND Family Medicine
DX: M77.11 Lateral epicondylitis, right elbow (principal); M67.823 Other specified disorders of tendon, right elbow

== ENCOUNTER → 2024-08-22 | Outpatient (CLI) | payer MEDICAID ==
--- NOTE | 2024-08-22 22:08 | US ---
EXAMINATION TYPE: US venous doppler duplex LE BI DATE OF EXAM: 08/22/2024 3:49 PM COMPARISON: NONE CLINICAL INDICATION: Female, 59 years old with history of R60.0 EDEMA; edema, Pain TECHNIQUE: The lower extremity deep venous system is examined utilizing real time linear array sonog rita with graded compression, color doppler sonography, and spectral doppler. SIDE PERFORMED: Bilateral FINDINGS: VESSELS IMAGED: Common Femoral Vein Deep Femoral Vein Greater Saphenous Vein * Femoral Vein Popliteal Vein Small Saphenous Vein * Proximal Calf Veins (* superficial vessels) Right Leg: Negative for DVT, Color Doppler imaging shows patency of the vessels. Spectral waveforms are within normal limits. Left Leg: Negative for DVT, Color Doppler imaging shows patency of the vessels. Spectral waveforms a re within normal limits. IMPRESSION: Bilateral lower extremity ultrasound negative for deep venous thrombosis [facility], , 08/22/2024 10:06 PM
== END | disposition home or self-care (01) ==
LOC: RADUSWWP 15:25
PROVIDERS: ATTEND Family Medicine
DX: R60.0 Localized edema (principal); M79.661 Pain in right lower leg; M79.662 Pain in left lower leg
CPT/HCPCS: 93970